=== PATIENT | male | born 1975 | race Caucasian/White ===

== ENCOUNTER 2018-08-01 10:19 | Day surgery (SDC) | payer OTHER ==
[~2018-08-01] VITALS: Ht 175.3 cm; Wt 131.0 kg
[~2018-08-01 10:19] MED LIST: Arthritis Pai42.5 GM; BENADRYL; BUPR100ER; CEPH500 PO; CYCL10; CYCL10 PO; DIAZ10 PO; DIPH50; DULO60 PO; ESCI20; GLUCOSAMINE &1 EACH; HYDACE5; HYDACE5 PO; HYDR1TAB94; IBUPROFEN; ISOMON30 PO; LISI5 PO; METO25; MSM1000 MG; Norco 10-325 T1 EACH; OMEP20ER PO; OMEPRAZOLE MAGN20 MG; OXYACE10; OXYC40ER; PENNSAID2 GM; PRED20 PO; RANI150; SULTRIDS PO; TESTONE CI200 MG/1 M; TOPI50 PO; VARE1; WELLBUTRIN; Xanax0.5 MG PO; [UNRECOGNIZED DRUG - CODE]; [UNRECOGNIZED DRUG - OTHER]
[2018-08-01] MEDS ORDERED: GLUC500 (10:57)
[2018-08-01] MEDS ORDERED: PENNSAID2 GM (10:57)
== END 2018-08-01 14:17 | disposition home or self-care (01) ==
LOC: ORSCSDS 10:19
PROVIDERS: Orthopaedic Surgery
PROC: 0LS14ZZ Reposition Right Shoulder Tendon, Percutaneous Endoscopic Approach (ICD-10-PCS; principal; 2018-08-01 11:45)
PROC: 0LQ14ZZ Repair Right Shoulder Tendon, Percutaneous Endoscopic Approach (ICD-10-PCS; principal; 2018-08-01 11:45)
PROC: 0RNJ4ZZ Release Right Shoulder Joint, Percutaneous Endoscopic Approach (ICD-10-PCS; principal; 2018-08-01 11:45)
DX: M75.111 Incomplete rotator cuff tear or rupture of right shoulder, not specified as traumatic (principal); M75.21 Bicipital tendinitis, right shoulder; M75.51 Bursitis of right shoulder; M75.41 Impingement syndrome of right shoulder; I10 Essential (primary) hypertension; G47.33 Obstructive sleep apnea (adult) (pediatric); K21.9 Gastro-esophageal reflux disease without esophagitis; Z79.899 Other long term (current) drug therapy
CPT/HCPCS: C1713; J0171; J0690; J1100; J1885; J2250; J2405; J3010; J7120

== ENCOUNTER 2019-04-17 08:47 | Day surgery (SDC) | payer OTHER ==
[~2019-04-17] VITALS: Ht 185.4 cm; Wt 131.3 kg
[~2019-04-17 08:47] MED LIST changes: +GLUC500
[2019-04-17] MEDS ORDERED: PENVK500 PO (09:15)
== END 2019-04-17 10:37 | disposition home or self-care (01) ==
LOC: ORSCSDS 08:47
PROVIDERS: Internal Medicine Gastroenterology
PROC: 0DB58ZX Excision of Esophagus, Via Natural or Artificial Opening Endoscopic, Diagnostic (ICD-10-PCS; principal; 2019-04-17 10:00)
PROC: 0DB68ZX Excision of Stomach, Via Natural or Artificial Opening Endoscopic, Diagnostic (ICD-10-PCS; principal; 2019-04-17 10:00)
DX: K21.0 Gastro-esophageal reflux disease with esophagitis (principal); K22.70 Barrett's esophagus without dysplasia; K29.70 Gastritis, unspecified, without bleeding; I10 Essential (primary) hypertension; G47.33 Obstructive sleep apnea (adult) (pediatric); F17.220 Nicotine dependence, chewing tobacco, uncomplicated; E66.01 Morbid (severe) obesity due to excess calories; Z68.38 Body mass index [BMI] 38.0-38.9, adult; Z79.899 Other long term (current) drug therapy
CPT/HCPCS: 88305; 88342; J2250; J2704; J7120

== ENCOUNTER 2019-08-14 12:50 | Emergency (ER) | payer MEDICARE, OTHER ==
[~2019-08-14] VITALS: Ht 185.4 cm; Wt 124.7 kg
[~2019-08-14 12:50] MED LIST changes: +PENVK500 PO
[2019-08-14 14:13] LABS: BASOPHILS ABSOLUTE AUTO 0.03 K/mm3 (0.00-0.23); BASOPHILS PERCENT AUTO 1 % (0-2); EOSINOPHILS ABSOLUTE AUTO 0.14 K/mm3 (0.00-0.68); EOSINOPHILS PERCENT AUTO 3 % (0-6); Hematocrit 41.3 % (37.0-53.0); Hemoglobin 14.5 g/dL (13.5-17.5); IMMATURE GRAN ABSOLUTE AUTO 0.01 K/mm3 (0.00-0.10); IMMATURE GRAN PERCENT AUTO 0 % (0-1); LYMPHOCYTES ABSOLUTE AUTO 2.16 K/mm3 (0.84-5.20); LYMPHOCYTES PERCENT AUTO 39 % (21-46); MONOCYTES ABSOLUTE AUTO 0.46 K/mm3 (0.16-1.47); MONOCYTES PERCENT AUTO 8 % (4-13); Mean Corpuscular HGB 29.7 pg (26.0-34.0); Mean Corpuscular HGB Conc 35.1 g/dL (31.5-36.5); Mean Corpuscular Volume 85 fL (80-100); Mean Platelet Volume 9.9 fL (9.1-12.4); NEUTROPHILS ABSOLUTE AUTO 2.72 K/mm3 (1.96-9.15); NEUTROPHILS PERCENT AUTO 49 % (41-73); Platelet Count 262 K/mm3 (150-400); RDW Coefficient Variation 13.2 % (11.7-14.2); RDW Standard Deviation 40.8 fL (35.1-46.3); Red Blood Cell Count 4.88 M/mm3 (4.30-5.90); White Blood Cell Count 5.52 K/mm3 (4.00-11.30)
[2019-08-14 14:37] LABS: Alanine Aminotransfer (ALT/SGP 37 U/L (12-78); Albumin, Blood 4.5 g/dL (3.4-5.0); Albumin/Globulin Ratio 1.3 (0.8-1.8); Alk Phos 58 U/L (50-136); Anion Gap 7 mmol/L (6-16); Aspartate Aminotrans (AST/SGOT 20 U/L (12-37); Bilirubin, Total 0.3 mg/dL (0.1-1.0); Blood Urea Nitrogen 13 mg/dL (8-24); CO2, Blood 24 mmol/L (21-32); Calcium, Blood 8.9 mg/dL (8.5-10.1); Chloride, Blood 107 mmol/L (98-108); Globulin, Blood 3.5 g/dL (2.2-4.0); Glomerular Filtration Rate >60 (60-); Glucose, Blood 99 mg/dL (70-99); Potassium, Blood 3.9 mmol/L (3.5-5.5); Sodium, Blood 138 mmol/L (136-145)
[2019-08-14] MEDS ORDERED: Ativan1 MG PO (15:06)
== END 2019-08-14 15:27 | disposition home or self-care (01) ==
LOC: ER 12:50
PROVIDERS: Emergency Medicine
DX: R47.01 Aphasia (principal); R25.1 Tremor, unspecified; Z87.891 Personal history of nicotine dependence; Z88.1 Allergy status to other antibiotic agents; Z79.899 Other long term (current) drug therapy; Z79.891 Long term (current) use of opiate analgesic
CPT/HCPCS: 36415; 70450; 80053; 82947; 85025; 93005; 93010; 96374; 99285-25; J2060

== ENCOUNTER 2020-10-11 13:20 | Emergency (ER) | payer MEDICARE ==
[~2020-10-11] VITALS: Ht 185.4 cm; Wt 134.3 kg
[~2020-10-11 13:20] MED LIST changes: +Ativan1 MG PO; -OMEPRAZOLE MAGN20 MG; +OMEPRAZOLE MAGN20 MG PO
[2020-10-11] MEDS ORDERED: GABA300 PO (14:09)
[2020-10-11] MEDS ORDERED: AMIT50 PO (14:09)
[2020-10-11] MEDS ORDERED: AMPDEX10CR PO (14:10)
== END 2020-10-11 15:25 | disposition home or self-care (01) ==
LOC: ER 13:20
DX: H81.10 Benign paroxysmal vertigo, unspecified ear (principal); T16.1XXA Foreign body in right ear, initial encounter; I10 Essential (primary) hypertension; K21.9 Gastro-esophageal reflux disease without esophagitis; F17.220 Nicotine dependence, chewing tobacco, uncomplicated; Z88.1 Allergy status to other antibiotic agents; Z79.899 Other long term (current) drug therapy
CPT/HCPCS: 69209; 99283-25

== ENCOUNTER 2021-04-03 07:57 | Day surgery (SDC) | payer MEDICARE ==
[~2021-04-03] VITALS: Ht 185.4 cm; Wt 132.8 kg
[~2021-04-03 07:57] MED LIST changes: +AMIT50 PO; +AMPDEX10CR PO; +GABA300 PO
--- NOTE | 2021-04-03 08:37 | NUR ---
Ambulatory in Day Surgery History, Chart, Medications and Allergies reviewed before start of procedure. Lungs clear T/O to Auscultation. Patient confirms NPO status and agrees with scheduled surgery. Pre-Op teaching done. Pt verbalizes understanding. Patient States Post-Procedure ride home has been arranged.
--- NOTE | 2021-04-03 10:50 | NUR ---
04/03/21 1050 Mando Hanson History, Chart, Medications and Allergies reviewed before start of procedure. MONITOR INTACT WITH CONTINUOUS PULSE OXIMETRY AND INTERMITTENT BP. O2 VIA N/C INTACT THROUGHOUT SEDATION/PROCEDURE. See Anesthesia record/DR MELISSA. WEARING APPAREL FOLDER IN SCOPE ROOM.
--- NOTE | 2021-04-03 11:22 | NUR ---
Patient up to Ambulate independently. Gait steady. Discharge instructions reviewed with patient. Patient verbalizes understanding. Copy given to patient to take home. Discharged via wheelchair to private car for ride home WITH DAUGHTER.
== END 2021-04-03 11:24 | disposition home or self-care (01) ==
LOC: ORSCMMR 07:57 → ORD 09:15 → ORSCMMR 09:15
PROVIDERS: Internal Medicine Gastroenterology
PROC: 0DB58ZX Excision of Esophagus, Via Natural or Artificial Opening Endoscopic, Diagnostic (ICD-10-PCS; principal; 2021-04-03 09:15)
DX: K22.70 Barrett's esophagus without dysplasia (principal); K44.9 Diaphragmatic hernia without obstruction or gangrene; E78.5 Hyperlipidemia, unspecified; I10 Essential (primary) hypertension; G47.30 Sleep apnea, unspecified; K21.9 Gastro-esophageal reflux disease without esophagitis; G47.33 Obstructive sleep apnea (adult) (pediatric); E66.9 Obesity, unspecified; Z68.38 Body mass index [BMI] 38.0-38.9, adult; F17.200 Nicotine dependence, unspecified, uncomplicated; Z79.899 Other long term (current) drug therapy
CPT/HCPCS: 88305; A9270; J2704; J7120

== ENCOUNTER → 2024-03-15 | Outpatient (CLI) | payer MEDICARE, OTHER | LOC: LAB SHORT 15:54 → LAB 15:54 | DX: L03.211 Cellulitis of face (principal) | CPT/HCPCS: 87070; 87077; 87147; 87186; 87205 ==

== ENCOUNTER 2024-08-16 07:21 | Day surgery (SDC) | payer MEDICARE, OTHER ==
[~2024-08-16] VITALS: Ht 185.4 cm; Wt 130.8 kg
[2024-08-16] VITALS (20 sets, daily range): BP systolic 103–155; BP diastolic 63–120
[~2024-08-16 07:21] MED LIST changes: +Benzocaine Oral Spray 0.5ML UD ONE; +Budeprion Xl300 MG PO; +FAMO10 PO; +Lactated Ringer's 1,000 ML IV SCH; +propofoL 40 ML IV ONE
[2024-08-16] MEDS ORDERED: Midazolam HCl 1MG / ML 2ML Vial ONE (07:50)
[2024-08-16] MEDS ORDERED: Ondansetron HCl 2 MG / ML 2ML Vial ONE (07:51)
--- NOTE | 2024-08-16 07:54 | NUR ---
Ambulatory in Day Surgery. History, Chart, Medications and Allergies reviewed before start of procedure. Lungs clear T/O to Auscultation. Patient confirms NPO status and agrees with scheduled surgery. Pre-Op teaching done. Pt verbalizes understanding. Patient States Post-Procedure ride home has been arranged.
--- NOTE | 2024-08-16 07:54 | NUR ---
08/16/24 0754 Rimma Pennington CONFIRMED AND REVIEWED H&P, MEDCICATIONS, ALLERGIES, MEDICAL HISTORY, RESPIRATORY HISTORY, VITAL SIGNS, 3-LEAD EKG, CONSENTS, AND PHYSICIAN ORDERS. PATIENT CONFIRMS NPO STATUS AND AGREES WITH SCHEDULED PROCEDURE. MONITOR INTACT WITH CONTINUOUS PULSE OXIMETRY, CAPNOGRAPHY, 3-LEAD EKG, INTERMITTENT BP. SUPPLEMENTAL O2 TO BE TITRATED THROUGHOUT PROCEDURE TO MAINTAIN O2 SATURATION ABOVE 90%. PATIENT DETERMINED TO BE ASA APPROPRIATE FOR PROPOFOL SEDATION PRIOR TO START OF PROCEDURE BY DR. CABALLERO
--- NOTE | 2024-08-16 08:35 | NUR ---
PT TO DAY SURGERY STEP DOWN FROM EGD AND COLONOSCOPY; BEDSIDE REPORT RECEIVED. PT IS AWAKE, ALERT AND ORIENTED; ABLE TO MOVE SELF IN BED. NO COMPLAINTS.
--- NOTE | 2024-08-16 08:45 | NUR ---
Patient up to Ambulate independently. Gait steady. Up to bathroom.
--- NOTE | 2024-08-16 08:46 | NUR ---
Discharge instructions reviewed with patient. Patient verbalizes understanding. Copy given to patient to take home. Patient States Post-Procedure ride home has been arranged.
--- NOTE | 2024-08-16 08:47 | NUR ---
PT TOLERATING PO FLUIDS WELL
--- NOTE | 2024-08-16 08:55 | NUR ---
Discharged via wheelchair to private car for ride home.
== END 2024-08-16 08:56 | disposition home or self-care (01) ==
LOC: ORSCMMR 07:21 → ORD 08:00 → ORSCMMR 08:00
PROVIDERS: Internal Medicine Gastroenterology
PROC: 0DB58ZX Excision of Esophagus, Via Natural or Artificial Opening Endoscopic, Diagnostic (ICD-10-PCS; principal; 2024-08-16 08:00)
PROC: 0DB48ZX Excision of Esophagogastric Junction, Via Natural or Artificial Opening Endoscopic, Diagnostic (ICD-10-PCS; principal; 2024-08-16 08:00)
PROC: 0DBN8ZX Excision of Sigmoid Colon, Via Natural or Artificial Opening Endoscopic, Diagnostic (ICD-10-PCS; principal; 2024-08-16 08:00)
DX: K22.70 Barrett's esophagus without dysplasia (principal); Z12.11 Encounter for screening for malignant neoplasm of colon; Z86.0100 Personal history of colon polyps, unspecified; K63.5 Polyp of colon; R13.10 Dysphagia, unspecified; Z80.0 Family history of malignant neoplasm of digestive organs; F32.A Depression, unspecified; K44.9 Diaphragmatic hernia without obstruction or gangrene; Z79.899 Other long term (current) drug therapy
CPT/HCPCS: 88305; A9270; J2250; J2405; J2704; J7120